=== PATIENT | female | born 1955 | race Caucasian/White ===

== ENCOUNTER 2017-07-31 18:26 | Emergency (ER) | payer OTHER ==
[~2017-07-31] VITALS: Ht 167.6 cm; Wt 62.3 kg
[~2017-07-31 18:26] MED LIST: AMB5 PO; FLE10 PO; FLUN25SP NS; LIDO30AD TOP; [UNRECOGNIZED DRUG - CODE] PO; excedrin; vicoden
[2017-07-31 18:31] VITALS: BP 145/99; PULSE 105; RESP 18; O2SAT 100
--- NOTE | 2017-07-31 20:07 | ED.REPORT ---
HPI-General Illness Date of Service Jul 31, 2017 ED Provider: Rick Buchanan MD Pt is a 62 year old female with a history of hyperopia and regular astigmatism who presents to the ED complaining of bilateral blurred vision that was gradual in onset 2 days ago when she woke up. She reports tight chest pain secondary to feeling "anxious and upset" about her vision change. Her symptoms are exacerbated with "light". Pt denies new headache, fever, focal weakness, chills , bruising, rash, chest pain, SOB, constipation, diarrhea, hematochezia, hematuria, numbness, and floaters or flashers. Per pt, she has experienced similar symptoms previously when she has had a cold, but she denies feeling currently ill. She reports that she was ill with flu symptoms 3 days ago. She describes her vision change as "glarey" and "fuzzy." Pt presented to with her symptoms and she was referred to the ED for further evaluation. Pt reports that she had a flu shot 3 days ago. Nursing Notes Stated Complaint: CHEST PAIN,BLURED VISION Chief Complaint: Chest Pain Nursing Notes Reviewed: Yes Allergies: Coded Allergies: codeine (Verified Adverse Reaction, Unknown, 07/31/17) ezetimibe (Verified Adverse Reaction, Unknown, 07/31/17) hydrocodone (Verified Adverse Reaction, Unknown, 07/31/17) ibuprofen (Verified Adverse Reaction, Unknown, 07/31/17) melatonin (Verified Adverse Reaction, Unknown, 07/31/17) oxycodone (Verified Adverse Reaction, Unknown, 07/31/17) tramadol (Verified Adverse Reaction, Unknown, 07/31/17) valerian (Verified Adverse Reaction, Unknown, 07/31/17) Scheduled Belladonna Alk/PB-Expunged Drug, Do Not Renew (-Expunged Drug, Do Not Renew!) 1 Tab.sa Tablet.sa 1 TAB.SA PO PRN Cyclobenzaprine-Expunged Drug, Do Not Renew! (Flexeril-Expunged Drug, Do Not Renew!) 10 Mg Tablet 10 MG PO TID FOR MUSCLE SPASM Flunisolide-Expunged Drug, Do Not Renew! (Flunisolide-Expunged Drug, Do Not Renew!) 25 Ml [place] 2 SPRAY NS BID Lidocaine-Expunged Drug, Do Not Renew! (Lidoderm 5% Trans-Expunged Drug, Do Not Renew) 1 Patch Adh..patch 1 PATCH TOP DAILY 12H ON 12H OFF Scheduled PRN Zolpidem-Expunged Drug, Do Not Renew! (Zolpidem-Expunged Drug, Do Not Renew!) 5 Mg Tablet 2.5-5 MG PO HS PRN PRN For Insomnia Miscellaneous Medications ([excedrin]) ([vicoden]) General Time Seen by MD: 18:56 Chief Complaint Other (Blurred vision) Hx Obtained From: Patient Arrived By: Walk-in Sudden in Onset?: No Onset Occurred: 2 days ago Symptom Duration: Since onset Severity: Current: No pain currently Severity: Maximum: No pain Recent Healthcare: Recent doctor visit Similar Sx Previous: Yes Past Medical History Past Medical History Hyperopia Regular astigmatism IBS Presbyopia Left vertebral artery stenosis on the basis of MRA Reports: Hyperlipidemia Past Surgical History Cervical fusion Reports: Tonsillectomy Reports: Carpal tunnel, Tubal ligation Smoking History Smoker Current Status UNK Social History Alcohol Use: "Social" Drug Use: Denies drug use Other Social History: Good social support, Ambulatory Status Independent Review of Systems Denies floaters Denies flashers Full Review of Systems Constitutional: Denies: Chills, Fever Eyes: Reports: Blurred bilateral Respiratory: Denies: Shortness of breath Cardiovascular: Reports: Chest pain GI: Denies: Constipation, Diarrhea, Hematemesis Female: Denies: Hematuria Hematologic: Denies Bruising Skin: Denies Rash Neurologic: Reports: Vision change, Denies: Focal weakness, Headache Psychiatric: Reports: Agitation (upset), Anxiety Complete sys rev & neg: except as marked. Physical Exam Nursing note and vitals reviewed. Constitutional: Well-developed, well-nourished. Not diaphoretic. Head: Normocephalic and atraumatic. No temporal tenderness. Mouth/Throat: Oropharynx is clear and moist. No oropharyngeal exudate. Eyes: EOM are normal. Pupils are equal, round, and reactive to light. Pressure of 43 in right and 39 in left. Rechecked with similar values. Mild conjunctival injection. Neck: Supple, no tracheal deviation. Cardiovascular: Normal rate, regular rhythm. Equal and intact distal pulses throughout. Pulmonary/Chest: Effort normal and breath sounds normal. No respiratory distress. Abdominal: Soft. No distension. There is no tenderness, rebound, or guarding. Bowel sounds present. Musculoskeletal: Range of motion grossly intact, moving all extremities. No edema or tenderness appreciated. Neurological: AOx3. Grossly nonfocal exam. Strength and sensation intact and equal to bilateral upper and lower extremities. Skin: Warm and dry, no rashes or pallor appreciated. Psychiatric: Appropriate mood and affect. Behavior appears normal. Vital Signs Vital Signs Date Time Temp Pulse Resp B/P Pulse Ox O2 Delivery O2 Flow Rate FiO2 07/31/17 22:47 36.7 61 18 177/98 100 Room Air 07/31/17 18:31 37.3 105 18 145/99 100 Room Air Initial VS: Reviewed Interpretation & Diagnostics Lab Results Interpretation Result Diagram: 07/31/17212507/31/172125 Test 07/31/17 21:26 White Blood Count 4.7th/mm3 (3.8-10.1) Red Blood Count 3.96mil/mm3 (3.90-5.20) Hemoglobin 12.0g/dL (12.0-15.6) Hematocrit 36.3% (35.0-46.0) Mean Corpuscular Volume 91.7fL (81-100) Mean Corpuscular Hemoglobin 30.3pg (27.0-35.0) Mean Corpuscular Hemoglobin Concent 33.1% (32.0-37.0) Red Cell Distribution Width 13.1% (12.3-15.4) Platelet Count 221bil/L (150-400) Neutrophils (%) (Auto) 49.1% (40-74) Lymphocytes (%) (Auto) 38.9% (14-46) Monocytes (%) (Auto) 9.3% (4-12) Eosinophils (%) (Auto) 2.3% (0-5) Basophils (%) (Auto) 0.4% (0-3) Sodium Level 135mEq/L (134-144) Potassium Level 4.1mEq/L (3.5-5.2) Chloride Level 99mEq/L (97-108) Carbon Dioxide Level 24mmol/L (18-29) Blood Urea Nitrogen 10mg/dL (8-27) Creatinine 0.59mg/dL (0.57-1.00) Estimat Glomerular Filtration Rate 147mL/min (>59) Glucose Level 87mg/dL (60-99) Calcium Level 9.3mg/dL (8.5-10.1) Magnesium Level 2.0mg/dL (1.6-2.6) Total Bilirubin 0.3mg/dL (0.0-1.2) Aspartate Amino Transf (AST/SGOT) 22U/L (0-50) Alanine Aminotransferase (ALT/SGPT) 16U/L (0-32) Alkaline Phosphatase 64U/L (25-165) Troponin T 0.010ug/L (0.0-0.011) Total Protein 7.0g/dL (6.4-8.4) Albumin 4.3g/dL (3.4-5.0) Hold Sarah Top Tube Received (Received) Lab Results Interpretation: [facility] ECG Interpretation ECG Interpretation: Sinus rhythm with a rate of 64 Time: 20:18 Interpreted by: ED physician X-Ray Chest Interpretation Chest Xray Interpretation: IMPRESSION: No acute cardiopulmonary disease. Dictated by: Herrera Mccain M.D. on 07/31/2017 at 20:45 View: Portable, 1 view Interpretation / Wet Read by: Interpret - Radiologist CT Head Interpretation IMPRESSION: No acute intracranial abnormalities. Dictated by: Herrera Mccain M.D. on 07/31/2017 at 21:27 Study: Head CT no contrast Interpretation / Wet Read by: Interpret - Radiologist Procedures TONOMETRY TESTING: Right - 43 Left - 39 Pressures were rechecked with similar values. Time: 20:27 Procedure performed by: ED physician Re-Eval/Medical Decision Med Decision/Clinical Course In summary, 62-year-old female presenting to the ED for evaluation of blurred vision over the past several days. Differential is broad and includes retinal detachment, vitreous hemorrhage, acute angle-closure glaucoma, CVA, temporal arteritis, optic neuritis, etc. Patient has no other neurologic symptoms at this time aside from her blurred vision; her visual acuity here is close to baseline for her. Clinical history does not seem consistent with retinal detachment or vitreous hemorrhage. She did have some chest tightness that she states is similar to when she gets anxious; chest x-ray, EKG reassuring. Troponin negative. Head CT negative for any acute intracranial abnormalities. Rest of laboratory studies here reviewed, also grossly within normal limits. Checked intraocular pressure with Kai-Pen; initial readings of 50 in each eye, subsequently repeated and noted to be 43 and 39, as per above. Although patient is having symptoms in both eyes, obvious concern for glaucoma. Ophthalmology consult as per below; appreciate Dr. Woodruff's involvement. Upon his evaluation , pressure is decreased. He does not feel that she needs timolol/acetazolamide at this time, but would like to see her in clinic for a full examination. Given the lack of other symptoms at this time, I do not feel like the patient needs an MRI right now, however I would like her to follow up with her PCP tomorrow. She is comfortable with no further workup here in the ED at this time and like to be discharged home. This seems reasonable. Plan discharge with careful return precautions, follow up tomorrow with PCP and with ophthalmology. Patient agreeable to the plan as stated, no further questions. Source of Hx: Old records Time of Eval: 19:57 Re-Evaluation/Progress Note: Informed pt of plan for x-ray, ecg, and labs secondary to her chest pain, as well as plan for head CT. Informed pt of need to follow up with opthalmologist tomorrow with pending discharge. She understands and agrees with plan. All questions addressed. Time of Eval: 20:28 Re-Evaluation/Progress Note: Rechecked pt. Obtained pt's eye pressure using tonometry with her consent. All questions addressed. Time of Eval: 21:14 Re-Evaluation/Progress Note: Infromed pt of plan for touch up painter hand to see her in the ED. All questions addressed. Time of Eval: 22:09 Patient Status: Condition improved Re-Evaluation/Progress Note: Pt rechecked. Dr. Woodruff repeated eye pressures in the ED. He got 17 and 19. He wants to have the pt follow up as an outpatient in the clinic. Time of Eval: 22:18 Re-Evaluation/Progress Note: Pt rechecked. Informed pt of plan for discharge. Pt understands and agrees with plan for discharge. F/U instructions and RTER warnings given. All questions addressed. Consultation : Consulted With: Neck Band Operator Call Returned at: 20:37 Portable Trackman: Agrees with eval, Agrees with plan Note: Consulted with Dr. Woodruff, opthalmologist. Discussed pt's case. He will come to the ED to see the pt. Counseled Regarding: Diagnosis, Lab results, Need for follow-up, When/why to return to ED Discharge & Departure Primary Impression: Blurred vision, bilateral Additional Impression: Chest tightness Disposition: Home Discharge Condition All VS Reviewed: Yes Condition: Stable Patient Instructions: Blurred Vision (ED), Chest Pain (ED) Additional Instructions: Thank you for allowing us to be a part of your care in the ED today. Your emergency department results, including chest x-ray, labs, ECG, and CT, are reassuring. I do not think that there is an emergent cause for your symptoms today that would require admission to the hospital; however, a clear cause of your symptoms was not identified. Please schedule a follow up appointment with the referral touch up painter hand clinic tomorrow for a recheck, and call your PCP to make an appointment as soon as possible. Please return to the emergency department for any new or worsening symptoms including any new or worsening vision changes, headache, nausea, vomiting, abdominal pain, shortness of breath, chest pain, one sided weakness/numbness, fevers, or chills, or if there's anything else of concern to you. Referrals: Epi Whitlock MD (PCP) [facility] Portions of this note were transcribed by Mary Grace Knight. I, Dr. Buchanan personally performed the history, physical exam and medical decision-making; I reviewed and confirmed the accuracy of the information in the transcribed note. Signed by: Louie Briggs, 07/31/17. copies to: [facility]; pEi Whitlock MD, William B MD Jul 31, 2017 20:07 Mary Grace Ann Jul 31, 2017 20:14
[2017-07-31] MEDS ORDERED: Tetracaine 0.5% 4 mL Ophthalmic Solution ONE (20:24)
--- NOTE | 2017-07-31 20:47 | DRSVH ---
PROCEDURE: X-RAY CHEST ONE VIEW, PORTABLE ([id number]) INDICATIONS: 62 year-old female with chest pain and blurred vision. TECHNIQUE: One view of the chest was acquired. COMPARISON: [facility], , CHEST 2VW, 02/27/2009, 23:28. FINDINGS: Surgical changes and devices: Anterior cervical spine fixation hardware is now present. Lungs and pleura: No pleural effusions or pneumothorax. Lungs are clear. Mediastinum: Mediastinal contours appear normal. Heart size is normal. Bones and chest wall: No suspicious bony lesions. Overlying soft tissues appear unremarkable. IMPRESSION: No acute cardiopulmonary disease. Dictated by: Herrera Mccain M.D. on 07/31/2017 at 20:45 Approved by: Herrera Mccain M.D. on 07/31/2017 at 20:45
[2017-07-31] MEDS ORDERED: Timolol 0.5% 5 mL Ophthalmic Solution BOTH_EYES ONE (20:50)
[2017-07-31] MEDS ORDERED: acetaZOLAMIDE 250 mg Tablet PO SCH (20:50)
[2017-07-31] MEDS ORDERED: acetaZOLAMIDE 250 mg Tablet PO ONE (20:52)
[2017-07-31] MEDS ORDERED: Tetracaine 0.5% 4 mL Ophthalmic Solution BOTH_EYES PRN (20:55)
[2017-07-31 21:30] LABS: BASOPHILS % (AUTO) 0.4 % (0-3); EOSINOPHILS % (AUTO) 2.3 % (0-5); MONOCYTES % (AUTO) 9.3 % (4-12); Mean Corpuscular Hemoglobin 30.3 pg (27.0-35.0); Mean Corpuscular Volume 91.7 fL (81-100); NEUTROPHILS % (AUTO) 49.1 % (40-74); Platelet Count 221 bil/L (150-400)
--- NOTE | 2017-07-31 21:31 | DRSVH ---
PROCEDURE: CT BRAIN WITHOUT CONTRAST ([id number]) INDICATIONS: 62 year-old female with headaches. TECHNIQUE: Noncontrast 4.5 mm thick angled axial sections acquired from the foramen magnum to the vertex, with c oronal reformats. COMPARISON: [facility], CT, BRAIN W/O CONTRAST, 04/03/2009, 1:29. FINDINGS: Image quality: Excellent. CSF spaces: Basal cisterns are patent. No extra-axial fluid collections. Ventricles are normal in size and shape. Brain: No midline shift. No intracranial masses or hemorrhage. Duffy-white matter interface is norm al. Left basal ganglia prominent perivascular space versus nonacute lacunar infarct is unchanged. Skull and face: Calvarium and visualized facial bones are intact, without suspicious lesions. Sinuses: Visualized sinuses and mastoids are clear. IMPRESSION: No acute intracranial abnormalities. Dictated by: Herrera Mccain M.D. on 07/31/2017 at 21:27 Approved by: Herrera Mccain M.D. on 07/31/2017 at 21:29
[2017-07-31 21:51] LABS: TROPONIN T 0.01 ug/L (0.0-0.011)
[2017-07-31 22:47] VITALS: BP 177/98; PULSE 61; RESP 18; O2SAT 100
== END 2017-07-31 22:45 | disposition home or self-care (01) ==
LOC: SED 18:26
DX: H53.8 Other visual disturbances (principal); R07.89 Other chest pain; F41.9 Anxiety disorder, unspecified; H52.03 Hypermetropia, bilateral; E78.5 Hyperlipidemia, unspecified; Z87.19 Personal history of other diseases of the digestive system; Z88.5 Allergy status to narcotic agent; Z88.6 Allergy status to analgesic agent; Z88.8 Allergy status to other drugs, medicaments and biological substances